=== PATIENT | female | born 1970 | race Hispanic/Latino ===

== ENCOUNTER 2017-04-20 15:11 | Outpatient (CLI) | payer OTHER ==
--- NOTE | 2017-04-20 15:50 | XRay Report ---
Right knee: Knee pain Standing views demonstrates moderate narrowing of the medial joint compartment. The articular margins appear smooth. Possible loose body in the anterior central joint space. Minimal periarticular spurs are identified involving the lateral compartment. Large articular spurs are present involving the superior patellofemoral articulation and a small spur inferiorly. There is good alignment of the knee. The bones are well-mineralized. There appears to be a small suprapatellar effusion. No soft tissue swelling noted. Impression: 1. Medial compartment joint narrowing. 2. Patellofemoral and lateral compartment articular spurs. 3. Questionable loose body in the anterior joint. 4. Suspect small suprapatellar joint effusion.
== END 2017-04-20 15:12 | disposition home or self-care (01) ==
LOC: SPVIMAG 15:11
PROVIDERS: ATTEND Orthopaedic Surgery
DX: M17.11 Unilateral primary osteoarthritis, right knee (principal); M25.861 Other specified joint disorders, right knee